=== PATIENT | female | born 1950 | race Caucasian/White ===

== ENCOUNTER 2017-10-23 14:23 | Inpatient (IN) | payer MEDICARE, BC ==
[~2017-10-23] VITALS: Ht 154.9 cm; Wt 65.8 kg
[~2017-10-23 14:23] MED LIST: ALENDRONATE SOD70 MG PO; ALENDRONATE70 MG PO; AMOXICILLIN500 MG PO; AMOXICILLIN875 MG PO; ASPIRIN LOW DOS81 MG PO; ASPIRIN LOW81 M1 PO; AUGMENTIN875TAB PO; CALCIUM OR; CIPROFLOXACN500 MG PO; CLARISPRAY50 MCG/ACT; CORTISPORIN OTI10 M1 AD; DESOXIMETAS0.05 % EX; DIVIGEL0.5 MG TD; FLONASE 60 DOS0.05 %; FLONASE0.05 %; FLUARIX QUADRIV1 IN1 IM; FLUZONE SPLT1 M1 IM; INDOMETHACIN50 MG PO; KENALOG-4040 MG/ML IA; KENALOG-4040 MG/ML IC; KENALOG-4040 MG/ML IJ; MELOXICAM15 MG PO; METOPROL TAR25 MG PO; NABUMETONE750 MG PO; NORCO1 TA1 PO; OMEPRAZOLE20 MG PO; PATANASE0.6 %; PROAIR HFA IN; PYRIDIUM200 MG PO; SULINDAC200 MG PO; TRAMADOL HCL50 MG PO; TYLENOL 500MG TAB PO; TYLENOL500 MG OR; VITAMIN D2000 UNI1 PO; VIVELLE-DOT0.1 MG TD; ZOFRAN ODT4 MG PO; ZOSTAVAX IM; ZYRTEC ALLGY10 M1 PO; ZYRTEC ALLGY10 MG PO; ZYRTEC10 MG PO; [UNRECOGNIZED DRUG - OTHER] OR
[2017-10-29 17:15] VITALS: BP 133/65
[2017-10-29 17:30] VITALS: BP 124/52
[2017-10-29 17:45] VITALS: BP 97/57
[2017-10-29 18:00] VITALS: BP 106/48
[2017-10-29 18:40] VITALS: BP 114/52
[2017-10-29 19:10] VITALS: BP 118/86
[2017-10-30] VITALS (8 sets, daily range): BP systolic 108–140; BP diastolic 42–70
[2017-10-30 05:33] LABS: HEMATOCRIT 37.9 % (37.0-47.0); HEMOGLOBIN 12.2 g/dl (12.0-16.0); MEAN CORPUSCULAR HGB 30.3 pG CALC (26.0-32.0); MEAN CORPUSCULAR HGB CONC 32.2 g/L CALC (32.0-36.0); RED BLOOD COUNT 4.03 mill/uL (4.20-5.60); RED CELL DISTRI WIDTH 12.3 % (11.5-15.5)
[2017-10-30 05:56] LABS: ANION GAP 16 (6-22 (CALC)); BUN 12 mg/dL (8-23); BUN/CREATININE RATIO 23 (12-20 (CALC)); CARBON DIOXIDE 23 mmol/l (22-30); CHLORIDE 99 mmol/l (95-108); CREATININE 0.5 mg/dL (0.5-1.0); GFR > 60 ML/MIN (>=60 (CALC)); GFR FOR AFR.AMER. > 60 ML/MIN (>=60 (CALC)); POTASSIUM 4.6 mmol/l (3.5-5.1); SODIUM 133 mmol/l (137-146)
[2017-10-31 04:10] VITALS: BP 114/42
[2017-10-31 07:23] LABS: HEMATOCRIT 34.3 % (37.0-47.0); HEMOGLOBIN 11.2 g/dl (12.0-16.0); MEAN CORPUSCULAR HGB 30.4 pG CALC (26.0-32.0); MEAN CORPUSCULAR HGB CONC 32.7 g/L CALC (32.0-36.0); RED BLOOD COUNT 3.69 mill/uL (4.20-5.60); RED CELL DISTRI WIDTH 12.6 % (11.5-15.5)
[2017-10-31 07:39] VITALS: BP 128/48
[2017-10-31 12:38] VITALS: BP 113/45
[2017-10-31 14:32] VITALS: BP 114/56
[2017-10-31 19:25] VITALS: BP 119/57
[2017-10-31 23:20] VITALS: BP 103/43
[2017-11-01 04:41] VITALS: BP 113/57
[2017-11-01 08:55] VITALS: BP 133/65
[2017-11-01 11:11] VITALS: BP 116/45
[2017-11-01] MEDS ORDERED: ASPIRIN EC325 MG PO (12:27)
[2017-11-01] MEDS ORDERED: PERCOCET 10/31 COMBO PO (12:27)
[2017-11-01] MEDS ORDERED: SURFAK240 MG/CAP PO (12:27)
[2017-11-01 14:57] VITALS: BP 99/57
[2017-11-01 18:03] LABS: ANION GAP 12 (6-22 (CALC)); BUN 10 mg/dL (8-23); BUN/CREATININE RATIO 19 (12-20 (CALC)); CARBON DIOXIDE 25 mmol/l (22-30); CHLORIDE 104 mmol/l (95-108); CREATININE 0.5 mg/dL (0.5-1.0); GFR > 60 ML/MIN (>=60 (CALC)); GFR FOR AFR.AMER. > 60 ML/MIN (>=60 (CALC)); SODIUM 137 mmol/l (137-146)
[2017-11-01 19:45] VITALS: BP 123/40
[2017-11-02 00:33] VITALS: BP 97/41
[2017-11-02 04:45] VITALS: BP 110/61
== END 2017-11-02 08:00 | disposition home health service (06) | DRG 470 ==
LOC: ICU 10-29 08:12 → MS2 10-29 14:15
PROVIDERS: Internal Medicine; Nurse Practitioner Family; ADMIT Orthopaedic Surgery; ATTEND Orthopaedic Surgery
PROC: 0SRD0J9 Replacement of Left Knee Joint with Synthetic Substitute, Cemented, Open Approach (ICD-10-PCS; principal; 2017-10-29)
PROC: 3E0234Z Introduction of Serum, Toxoid and Vaccine into Muscle, Percutaneous Approach (ICD-10-PCS; 2017-10-31)
DX: M17.12 Unilateral primary osteoarthritis, left knee (principal); I10 Essential (primary) hypertension; M81.0 Age-related osteoporosis without current pathological fracture; K21.9 Gastro-esophageal reflux disease without esophagitis; K59.00 Constipation, unspecified; Z23 Encounter for immunization
CPT/HCPCS: J2270

== ENCOUNTER 2018-01-17 08:00 | Outpatient (RCR) | payer MEDICARE, BC ==
[~2018-01-17 08:00] MED LIST changes: +ASPIRIN EC325 MG PO; +PERCOCET 10/31 COMBO PO; +SURFAK240 MG/CAP PO
== END 2018-01-17 09:00 | disposition home or self-care (01) ==
LOC: PT 08:00
DX: Z47.1 Aftercare following joint replacement surgery (principal); Z96.652 Presence of left artificial knee joint

== ENCOUNTER 2019-09-25 08:01 | Day surgery (SDC) | payer MEDICARE, BC ==
[~2019-09-25 08:01] MED LIST changes: +CARAFATE1 GM PO; +FOSAMAX PLUS PO; +METOPROLOL50 M1 PO; +NITROGLYCER0.4 MG SL; +NITROSTAT0.4 MG SL; +PAIN RELIEF EX500 M2 PO; +PROTONIX40 M2 PO
[2019-09-25] MEDS ORDERED: PROTONIX20 M1 PO (09:15)
[2019-09-25 11:21] VITALS: BP 118/55
== END 2019-09-25 11:35 | disposition home or self-care (01) ==
LOC: ENDO 08:01 → ORM 08:15 → ENDO 08:50 → ORM 08:50 → ENDO 09:20
PROVIDERS: ATTEND Surgery
PROC: 0DB78ZX Excision of Stomach, Pylorus, Via Natural or Artificial Opening Endoscopic, Diagnostic (ICD-10-PCS; principal; 2019-09-25)
DX: K29.70 Gastritis, unspecified, without bleeding (principal); K31.9 Disease of stomach and duodenum, unspecified; K21.9 Gastro-esophageal reflux disease without esophagitis; K44.9 Diaphragmatic hernia without obstruction or gangrene; Z11.59 Encounter for screening for other viral diseases

== ENCOUNTER 2021-02-08 06:43 | Day surgery (SDC) | payer MEDICARE, BC ==
[~2021-02-08 06:43] MED LIST changes: +OMEPRAZOLE DR20 MG PO; +PROTONIX20 M1 PO; +ZOLPIDEM5 M1 PO
[2021-02-08 08:59] VITALS: BP 102/50
== END 2021-02-08 08:50 | disposition home or self-care (01) ==
LOC: ENDO 06:43
PROVIDERS: ATTEND Surgery
PROC: 0DJD8ZZ Inspection of Lower Intestinal Tract, Via Natural or Artificial Opening Endoscopic (ICD-10-PCS; principal; 2021-02-08)
DX: Z12.11 Encounter for screening for malignant neoplasm of colon (principal); K57.30 Diverticulosis of large intestine without perforation or abscess without bleeding

== ENCOUNTER 2021-03-30 07:19 | Emergency (ER) | payer MEDICARE, BC ==
[~2021-03-30] VITALS: Ht 154.9 cm; Wt 68.0 kg
[2021-03-30 08:27] LABS: HEMATOCRIT 42.9 % (37.0-47.0); HEMOGLOBIN 13.3 g/dl (12.0-16.0); IMMATURE GRANULOCYTES 0.4 % (0.0-5.0); MEAN CELL VOLUME 95.8 fL CALC (80.0-100.0); MEAN CORPUSCULAR HGB 29.7 pG CALC (26.0-32.0); NEUT# 6.7 thou/uL (2.00-7.15); RED BLOOD COUNT 4.48 mill/uL (4.20-5.60)
[2021-03-30 08:44] LABS: ALBUMIN 4.5 g/dL (3.2-5.0); ALKALINE PHOSPHATASE 92 u/l (38-126); ANION GAP 16 (6-22 (CALC)); BILIRUBIN, TOTAL 0.5 mg/dL (0.0-1.4); BUN 18 mg/dL (8-23); BUN/CREATININE RATIO 25 (12-20 (CALC)); CARBON DIOXIDE 21 mmol/l (22-30); CHLORIDE 108 mmol/l (95-108); CREATININE 0.7 mg/dL (0.5-1.0); GFR > 60 ML/MIN (>=60 (CALC)); GFR FOR AFR.AMER. > 60 ML/MIN (>=60 (CALC)); POTASSIUM 4.3 mmol/l (3.5-5.1); SGOT/AST 24 u/l (9-36); SODIUM 140 mmol/l (137-146); TOTAL PROTEIN 8.3 g/dL (6.3-8.2)
[2021-03-30 11:38] VITALS: BP 140/63
== END 2021-03-30 11:34 ==
LOC: ED 07:19
PROVIDERS: Family Medicine
DX: S72.001A Fracture of unspecified part of neck of right femur, initial encounter for closed fracture (principal); I10 Essential (primary) hypertension; K21.9 Gastro-esophageal reflux disease without esophagitis; W01.0XXA Fall on same level from slipping, tripping and stumbling without subsequent striking against object, initial encounter; Y92.009 Unspecified place in unspecified non-institutional (private) residence as the place of occurrence of the external cause